=== PATIENT | male | born 1985 | race Caucasian/White ===

== ENCOUNTER 2017-02-10 13:16 | Emergency (ER) | payer OTHER ==
[~2017-02-10] VITALS: Ht 182.9 cm; Wt 62.8 kg
[2017-02-10 13:18] VITALS: Ht 182.9 cm; Wt 62.8 kg
[2017-02-10 14:07] LABS: URINE BLOOD (Dip) POC Trace-intact (NEGATIVE)
--- NOTE | 2017-02-10 19:27 | ERD ---
ER Documentation Chief Complaint Chief Complaint bilateral ankle pain/injury started 2 hours ago HPI 31-year-old male complaining of bilateral ankle pain and calf pain. Patient states it feels like a cramping type sensation that comes and goes. Pain started over the last 2 hours. He does not know what caused the pain or what relieves the pain. Patient states he recently had oral surgery and is taking Augmentin. He denies any fever. Patient states that his Pain last for about 5 minutes and resolved spontaneously. Denies medical problems. NKDA. Surgical history: Dental surgery. ROS All systems reviewed and are negative except as per history of present illness. PMhx/Soc History of Surgery: No Anesthesia Reaction: No Hx Neurological Disorder: No Hx Respiratory Disorders: No Hx Cardiac Disorders: No Hx Psychiatric Problems: No Hx Miscellaneous Medical Probl: No Hx Alcohol Use: No Hx Substance Use: No Hx Tobacco Use: Yes Smoking Status: Current every day smoker Physical Exam Vitals Vital Signs Date Time Temp Pulse Resp B/P Pulse Ox O2 Delivery O2 Flow Rate FiO2 02/10/17 13:18 97.9 94 19 139/87 97 Physical Exam GENERAL: The patient is well-appearing, well-nourished, in no acute distress CHEST: Clear to auscultation bilaterally. There are no rales, wheezes or rhonchi. HEART: Regular rate and rhythm. No murmurs, clicks, rubs or gallops. No S3 or S4. EXTREMITIES: No swelling noted to the bilateral lower extremities. No calf tenderness. No erythema. Normal pulses in bilateral lower extremities. Neurovascular intact to the bilateral lower extremity's SKIN: No erythema. No swelling. Results 24 hrs Laboratory Tests Test 02/10/17 14:06 Bedside Urine pH (LAB) 7.0 Bedside Urine Protein (LAB) Negative Bedside Urine Glucose (UA) Negative Bedside Urine Ketones (LAB) Negative Bedside Urine Blood Trace-intact Bedside Urine Nitrite (LAB) Negative Bedside Urine Leukocyte Esterase (L Negative Procedures/MDM MDM: 31-year-old male complaining of bilateral calf pain. Patient eloped from the emergency room prior to ultrasound testing. Patient was attempted to be contacted however was unsuccessful. I have low suspicion for DVT however cannot confidently rule out given patient eloped prior to ultrasound and testing. I have low suspicion for rhabdomyolysis but blood work was not drawn so I have no definite rule out findings. TRACY TROTTER PA-C Feb 10, 2017 19:27
== END 2017-02-10 20:17 | disposition left against medical advice (07) ==
LOC: FTE 13:16
DX: M25.571 Pain in right ankle and joints of right foot (principal); M25.572 Pain in left ankle and joints of left foot; F17.210 Nicotine dependence, cigarettes, uncomplicated
CPT/HCPCS: 81003; 99282